=== PATIENT | female | born 1980 | race African-American/Black ===

== ENCOUNTER 2016-08-15 16:09 | Emergency (ER) | payer MEDICAID ==
[~2016-08-15] VITALS: Ht 182.9 cm; Wt 122.5 kg
[~2016-08-15 16:09] MED LIST: AUGMENTIN 875-1 EAC1 ORAL; AZITHROMYCIN250 MG ORAL; IBUPROFEN800 MG ORAL; MEDROL DOSEPAK4 MG ORAL; PROMETHAZINE-D118 ML ORAL; SINUS 12 HOUR120 MG PO
[2016-08-15 16:42] VITALS: BP 147/79
[2016-08-15] MEDS ORDERED: Ketorolac 30mg Inj IV ONE (17:00)
[2016-08-15] MEDS ORDERED: Unasyn 3gm Inj IVPB ONE (17:00)
[2016-08-15 17:40] LABS: APPEARANCE,URINE CLEAR; KETONES,URINE NEGATIVE (NEGATIVE); LEUKOCYTE ESTERASE ,URINE NEGATIVE (NEGATIVE); NITRITE,URINE NEGATIVE (NEGATIVE); PH,URINE 6 (4.5-8.0); PROTEIN,URINE 1+ (NEGATIVE); UROBILINOGEN,URINE NORMAL MG/DL (0.0-1.0)
[2016-08-15 17:43] LABS: MEAN CORPUSCULAR HGB CONC 30.4 G/DL (32.0-36.0); MEAN CORPUSCULAR VOLUME 69 FL (80-99); MEAN PLATELET VOLUME 6.8 FL (6.5-10.1); PLATELET COUNT 341 K/UL (150-450); RED BLOOD COUNT 3.57 M/UL (4.20-5.40); RED CELL DISTRIBUTION WIDTH 15.6 % (11.6-14.8); WHITE BLOOD COUNT 10.5 K/UL (4.8-10.8)
[2016-08-15 17:48] LABS: SQUAMOUS EPITHELIAL CELL,UR MODERATE /LPF (NONE/OCC)
[2016-08-15 17:49] LABS: BACTERIA,URINE FEW /HPF
[2016-08-15 17:54] LABS: ANION GAP 14 (5-15); CALCIUM 9.3 mg/dL (8.6-10.2); CARBON DIOXIDE 26 mEQ/L (20-30); CHLORIDE 100 mEQ/L (98-107); CREATININE 0.8 mg/dL (0.5-0.9); GLOMERULAR FILTRATION RATE > 60 mL/min (>60); HEMOLYSIS 9; POTASSIUM 3.4 mEQ/L (3.4-4.9); SODIUM 140 mEQ/L (135-145)
[2016-08-15] MEDS ORDERED: Morphine Sulfate 2mg/ml Inj IM ONE (18:15)
[2016-08-15] MEDS ORDERED: DiphenhydrAMINE 50mg/ml Inj IVP ONE (18:15)
[2016-08-15 18:34] LABS: BASOPHILS % (MANUAL) 1 % (0-2); EOSINOPHILS % (MANUAL) 7 % (0-3); LYMPHOCYTES % (MANUAL) 24 % (20-45); NEUTROPHILS % (MANUAL) 63 % (45-75); TOTAL CELLS COUNTED 100
[2016-08-15 18:35] LABS: BAND NEUTROPHILS % (MANUAL) 0 % (0-8); PLATELET ESTIMATE ADEQUATE; PLATELET MORPHOLOGY NORMAL
[2016-08-15 18:37] LABS: ANISOCYTOSIS 1+; HYPOCHROMASIA 2+; MICROCYTES 2+; POLYCHROMASIA 1+
[2016-08-15] MEDS ORDERED: PREDNISONE50 MG ORAL (19:22)
[2016-08-15] MEDS ORDERED: CIPRODEX OTIC7.5 M1 RIGHT EAR (19:22)
[2016-08-15] MEDS ORDERED: AUGMENTIN 875-1 EAC1 ORAL (19:22)
[2016-08-15] MEDS ORDERED: PERCOCET 5-3251 EACH ORAL (19:22)
--- NOTE | 2016-08-15 19:25 | Emergency Room Report ---
History of Present Illness General Chief Complaint: Earache Source: Patient Present Illness HPI 36 y/o female c/o right ear pain and discharge x 3 days. States her pain ix 10/ 10 and pain radiates from right ear to posterior head. States she has a hx of sinus problems but nothing like this and was asymptomatic prior to onset of symptoms. Currently not taking any medications. Pain worse with palpation and head movement and has no relieving factors. States she is allergic to Vicodin but not any other medications. Patient has goiter that has been present since early and has been stable w/o any physical complaints. Denies any current n/v/f/c/d, abd pain, back pain, neck pain, photophobia, phonophobia, CP, or SOB. Allergies: Coded Allergies: ACETAMINOPHEN (Verified Allergy, Unknown, 04/19/15) HYDROCODONE (Verified Allergy, Unknown, 04/19/15) Patient History Past Medical History: see triage record Past Surgical History: none Pertinent Family History: none Last Menstrual Period: 5-27 Now: No Reviewed Nursing Documentation: PMH: Agreed, PSxH: Agreed Nursing Documentation-PMH Past Medical History: No History, Except For Hx Asthma: Yes Review of Systems All Other Systems: negative except mentioned in HPI Physical Exam Vital Signs Date Time Temp Pulse Resp B/P Pulse Ox O2 Delivery O2 Flow Rate FiO2 08/15/16 16:31 98.4 94 20 143/82 98 Room Air Sp02 EP Interpretation: reviewed, normal General Appearance: alert, GCS 15, non-toxic, mild distress Head: normocephalic, atraumatic Eyes: bilateral eye PERRL, bilateral eye normal inspection ENT: normal pharynx, no angioedema, other - Decreased hearing, TM obscured with severe purulent drainage from right ear, TTP along right mastoid and occipital region. Tubrinates red and swollen. Sinuses TTP billaterally Neck: no bony tend, other - large goiter present Respiratory: chest non-tender, lungs clear, normal breath sounds, speaking full sentences Cardiovascular #1: regular rate, rhythm, no edema Musculoskeletal: back normal, gait/station normal, normal range of motion Neurologic: alert, oriented x3, responsive, motor strength/tone normal, sensory intact, speech normal Psychiatric: judgement/insight normal, memory normal, mood/affect normal, no suicidal/homicidal ideation Skin: normal color, no rash, warm/dry, well hydrated Medical Decision Making PA Attestation Dr. Narayan my supervising physician with whom patient management has been discussed with. 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 presents to the ED c/o ear pain Ddx considered but are not limited to AOM, sinus pressure, AOE, URI, sinusitis Vital signs: are WNL, pt. is afebrile H&PE are most consistent with AOM, AOE, Sinusitis, Mastoiditis with Periostitis ORDERS: CBC, CMP, Peg, UA, Culture, CT Mastoid ED INTERVENTIONS: Toradol, Morphine, Unasyn DISCHARGE: Patient has decided to AMA after it has been advised to admit due to severity of mastoiditis. Patient's pain is currently 0/10 (down from 10/10). Will provide printed patient care instructions, and any necessary prescriptions. Care plan and follow up instructions have been discussed with the patient prior to discharge. CT/MRI/US Diagnostic Results CT/MRI/US Diagnostic Results : Imaging Test Ordered: CT Facial Bones w/ Emphasis on Mastoid Impression Chronic sinusitis, chronic mastoiditis Last Vital Signs Date Time Temp Pulse Resp B/P Pulse Ox O2 Delivery O2 Flow Rate FiO2 08/15/16 19:40 98.3 91 17 147/79 98 Room Air Status: unchanged Disposition: HOME, SELF-CARE Condition: Serious Scripts Oxycodone/Acetaminophen 5-325* (PERCOCET 5-325 MG TABLET*) 1 Each Tablet 1 TAB ORAL Q6H Y for For Pain, #30 TAB 0 Refills Prov: SABRY,TAMEEM P.A. 08/15/16 Prednisone* (PREDNISONE*) 50 Mg Tablet 50 MG ORAL DAILY, #5 TAB 0 Refills Prov: SABRY,TAMEEM P.A. 08/15/16 Ciprofloxacin Hcl/Dexameth (CIPRODEX OTIC SUSPENSION) 7.5 Ml Drops.susp 4 DROP RIGHT EAR TWICE A DAY for 7 Days, #1 UNIT Prov: SABRY,TAMEEM P.A. 08/15/16 Amoxicillin/Potassium Clav 875-125* (AUGMENTIN 875-125 TABLET*) 1 Each Tablet 1 TAB ORAL TWICE A DAY, #28 TAB Prov: PRIYA NELSON. 08/15/16 Referrals: [facility],REFERRING (PCP) JENNIE DOTSON Vishal MD Patient Instructions: Ear Drainage, Mastoiditis, Pediatric, Otitis Media With Effusion, Sinusitis, Adult Additional Instructions: Take medication as directed. Patient needs to follow up with ENT. We have recommended she follow up with Dr. Dotson or Dr. Larios. Patient should follow up with PCP in the next 1-2 days. Patient instructed to take an over-the- counter pain reliever to reduce the pain, and to rinse your nose and sinuses with salt water a few times a day. Patient advised to NOT take Sudafed for sinusitis. Go to the ER if you experience any: fever higher than 102.5, sudden and severe pain in the face and head, trouble seeing or seeing double, trouble thinking clearly, swelling or redness around one or both eyes, or trouble breathing or a stiff neck. PRIYA NELSON Aug 15, 2016 19:25
[2016-08-15 19:40] VITALS: BP 147/79
--- NOTE | 2016-08-16 09:35 | Diagnostic Imaging Report ---
Indication: Mastoiditis Technique: Continuous helical transaxial imaging of the maxillofacial structures obtained without intravenous contrast administration. Coronal 2-D reformats were also obtained. Study obtained in a Siemens sensation [address] Total Dose length Product (DLP): [address] Dose Index Volume (CTDIvol): 28 mGy Comparison: None Findings: Examination demonstrates increased density of the mastoid portion of the temporal bones in association with extensive opacification of the mastoid air cells some of which appear coalescent. The findings are consistent with mastoiditis, likely chronic. In addition, there is opacification of both middle ear canals without obvious ossicular erosion. The right external auditory canal is opacified about 1 cm proximal to the tympanic membrane. The possibility of a external otitis infection should also be considered. Please correlate clinically. The paranasal sinuses are extensively opacified. There are several areas of periapical lucency both the upper and lower teeth posteriorly in the areas of the molars. Findings are suspicious for periapical abscesses and periodontal disease. Impression: Evidence of extensive, coalescent, bilateral chronic mastoiditis. Opacification of the right external auditory canal. External otitis should be considered. Bilateral otitis media. Extensive pansinusitis. Periapical abscesses and periodontal disease. The CT scanner at [facility] is accredited by the [employer] and the scans are performed using dose optimization techniques as appropriate to a performed exam including Automatic Exposure control.
[2016-08-17 07:12] LABS: OTHERS PATHOLOGIST COMMENT
== END 2016-08-15 19:40 | disposition home or self-care (01) ==
LOC: EMR 17:58 → EDBEDREQ 19:18 → EMR 19:40
DX: H70.13 Chronic mastoiditis, bilateral (principal); H65.33 Chronic mucoid otitis media, bilateral; J32.4 Chronic pansinusitis; H60.21 Malignant otitis externa, right ear
CPT/HCPCS: 36415; 70486; 80048; 81001; 81025; 85007; 85025; 96372; 96374; 96375; 99284; J0295; J1200; J1885; J2270